=== PATIENT | female | born 1965 | race Hispanic/Latino ===

== ENCOUNTER 2018-02-23 10:49 | Emergency (ER) | payer SELFPAY ==
[2018-02-23] MEDS ORDERED: NA CHLORIDE 0.9% 1,000 ML ONE (11:41)
[2018-02-23] MEDS ORDERED: PROMETHAZINE 25 MG/ML VIAL ONE (11:41)
[2018-02-23 11:47] LABS: Absolute Lymphocytes (CBC) 1.7 K/uL (0.7-4.9); Absolute Monocytes 0.3 K/uL (0.1-1.3); Absolute Neutrophil 4.6 K/uL (1.8-8.0); Basophils % 0.5 % (0-1.3); Eosinophils % 1.5 % (0-4.4); Hematocrit 41.3 % (36.0-45.0); Lymphocytes % 25.5 % (15.3-44.8); MPV 7.6 fL (7.6-11.3); Monocytes % 4.1 % (3.3-12.3)
[2018-02-23 11:48] LABS: Protime INR 1.04
--- NOTE | 2018-02-23 11:48 | RAD REPORT ---
EXAM DESCRIPTION: CT - Head Brain Wo Cont - 02/23/2018 11:35 am CLINICAL HISTORY: Dizziness COMPARISON: None. TECHNIQUE: Computed axial tomography of the head was obtained. IV contrast was not requested. All CT scans are performed using dose optimization technique as appropriate and may include automated exposure control or mA/KV adjustment according to patient size. FINDINGS: An intracranial bleed is not seen . The ventricles are normal in caliber. No extra-axial fluid collection is noted. Fluid within the sinuses/ mastoids is not seen. IMPRESSION: No acute intracranial abnormality is seen. If patient's symptoms persist MRI of the bra in would be recommended.
[2018-02-23 11:59] LABS: Bilirubin Direct 0.1 mg/dL (0-0.2); Bilirubin Total 0.4 mg/dL (0.2-1.0); Magnesium 2.2 mg/dL (1.8-2.4); Protein, Total 8.6 g/dL (6.4-8.2)
[2018-02-23 12:59] LABS: Urine Bacteria <20 /HPF (<20); Urine Culture Reflex Order NOT NEEDED; Urine RBC <5 /HPF (NONE SEEN)
[2018-02-23 13:29] LABS: Urine Blood TRACE (NEG); Urine Glucose NEGATIVE (NEG); Urine Protein 2+ (NEG); Urine pH 5.5 (5.0-7.0)
--- NOTE | 2018-02-23 14:09 | RAD REPORT ---
EXAM DESCRIPTION: CT - Abdomen Pelvis W Contrast - 02/23/2018 1:43 pm CLINICAL HISTORY: Abdominal pain./vomiting/upper abdominal pain COMPARISON: None. TECHNIQUE: Computed axial tomography of the abdomen and pelvis was obtained. 100 cc Isovue-300 is ad ministered intravenously. Oral contrast was given. All CT scans are performed using dose optimization technique as appropriate and may include automated exposure control or mA/KV adjustment according to patient size. FINDINGS: The liver, spleen, pancreas, adrenals and left kidney appear unremarkable. The right kidney is absent The appendix is normal caliber. There is no evidence of diverticulitis Wall of the distal stomach appears mildly thickened. Small lipoma is present the right sartorius muscle. 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 Tiny umbilical hernia IMPRESSION: Mild thickening of the wall of the distal stomach may indicate gastritis
--- NOTE | 2018-02-23 14:15 | RAD REPORT ---
EXAM DESCRIPTION: [place] Single View02/23/2018 12:15 pm CLINICAL HISTORY: Fever COMPARISON: none FINDINGS: The lungs appear clear of acute infiltrate. The heart is normal size IMPRESSION: No acute abnormalities displayed
[2018-02-23] MEDS ORDERED: MAGNE/ALUM HYDROXD 30 ML UCUP ONE (14:29)
[2018-02-23] MEDS ORDERED: LIDOCAINE VISCOUS 2% SOLN 15 ML UDC ONE (14:30)
--- NOTE | 2018-02-23 14:51 | ER ---
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 Transition of care: patient was not received from another setting of care. Onset of symptoms was February 23, 2018. Risk Assessment: Do you want to hurt yourself or someone else? Patient reports no desire to harm self or others. Initial Sepsis Screen: Does the patient meet any 2 criteria? Yes Does the patient have a suspected source of infection? No. Patient's initial sepsis screen is negative. Care prior to arrival: None. 10:59 Method Of Arrival: Ambulatory 10:59 Acuity: HEDY 3 hj Triage Assessment: 11:03 General: Appears in no apparent distress. uncomfortable, Behavior is calm, cooperative, hj appropriate for age. Pain: Complains of pain in abdomen. GI: Reports upper abdominal pain, nausea, vomiting. 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 - Social history:: Smoking status: Patient/guardian denies using tobacco, Patient/guardian denies using alcohol. - Ebola Screening: : Patient negative for fever greater than or equal to 101.5 degrees Fahrenheit, and additional compatible Ebola Virus Disease symptoms Patient denies exposure to infectious person Patient denies travel to an Ebola-affected area in the 21 days before illness onset. Screenin:03 Abuse screen: Denies threats or abuse. Denies injuries from another. Nutritional hj screening: No deficits noted. Tuberculosis screening: No symptoms or risk factors identified. Fall Risk None identified. Assessment: 11:03 GI: Abdomen is non-distended. hj 11:15 General: Appears in no apparent distress. uncomfortable, Behavior is calm, cooperative, jl7 appropriate for age. Pain: Complains of pain in epigastric area Pain radiates to diaphragm Pain currently is 6 out of 10 on a pain scale. Quality of pain is described as squeezing, Pain began suddenly, Is continuous. Neuro: Level of Consciousness is awake, alert, obeys commands, Oriented to person, place, time, situation. Cardiovascular: Patient's skin is warm and dry. Respiratory: Airway is patent Respiratory effort is even, unlabored, Respiratory pattern is regular, symmetrical. GI: Abdomen is round non-distended, Pt is actively vomiting bile, Bowel sounds present X 4 quads. : No signs and/or symptoms were reported regarding the genitourinary system. EENT: No signs and/or symptoms were reported regarding the EENT system. Derm: Skin is pink, warm \T\ dry. Musculoskeletal: No signs and/or symptoms reported regarding the musculoskeletal system. 11:45 Reassessment: Pt actively vomiting, medication administered as ordered. jl7 12:46 Reassessment: Pt laying in bed with eyes closed, respirations even and unlabored, no jl7 signs of distress noted at this time. Daughter remains at bedside. 13:30 Reassessment: No changes from previously documented assessment. Patient and/or family jl7 updated on plan of care and expected duration. Pain level reassessed. Patient is alert, oriented x 3, equal unlabored respirations, skin warm/dry/pink. 14:28 Reassessment: Patient appears in no apparent distress at this time. No changes from jl7 previously documented assessment. Patient and/or family updated on plan of care and expected duration. Pain level reassessed. Patient is alert, oriented x 3, equal unlabored respirations, skin warm/dry/pink. pain rated 3/10 at this time. Vital Signs: 11:03 BP 152 / 66; Pulse 72; Resp 18; Temp 98.8(TE); Pulse Ox 98% on R/A; Weight 72.57 kg; hj Height 4 ft. 11 in. (149.86 cm); Pain 6/10; 12:24 BP 158 / 81; Pulse 70; Resp 16 S; Pulse Ox 98% on R/A; jl7 14:25 BP 128 / 72; Pulse 81; Resp 16 S; Pulse Ox 97% on R/A; jl7 15:19 BP 143 / 80; Pulse 77; Resp 16; Pulse Ox 96% on R/A; Pain 2/10; jl7 11:03 Body Mass Index 32.31 (72.57 kg, 149.86 cm) hj ED Course: 10:52 Patient arrived in ED. as 11:00 Triage completed. hj 11:03 Arm band placed on left wrist. hj 11:06 Patient has correct armband on for positive identification. Placed in gown. Bed in low hj position. Call light in reach. Adult w/ patient. 11:15 Initial lab(s) drawn, by tn, sent to lab. Urine collected: clean catch specimen, clear. jl7 Inserted saline lock: 22 gauge in left wrist, using aseptic technique. Blood collected. 11:16 Fredy Ann, DONATO is Primary Nurse. jl7 11:24 Lila Roach FNP-C is PHCP. snw 11:24 Murray Espinal MD is Attending Physician. snw 11:34 CT completed. Patient tolerated procedure well. Patient moved to CT via stretcher. Patient moved back from CT. 11:37 CT Head Brain wo Cont In Process Unspecified. EDMS 12:12 X-ray completed. Portable x-ray completed in exam room. Patient tolerated procedure ag1 well. 12:18 XRAY Chest (1 view) In Process Unspecified. EDMS 12:35 EKG done, by technical support assistant. reviewed by Lila WALKER. vh 13:37 CT completed. Patient tolerated procedure well. Patient moved to CT via stretcher. jg6 13:43 CT completed. Patient tolerated procedure well. Patient moved to CT via stretcher. sj Patient moved back from CT. 13:44 CT Abd/Pelvis - W/Contrast In Process Unspecified. EDMS 15:20 No provider procedures requiring assistance completed. IV discontinued, intact, jl7 bleeding controlled, No redness/swelling at site. Pressure dressing applied. Administered Medications: 11:45 Drug: NS 0.9% 1000 ml Route: IV; Rate: 125 ml/hr; Site: left wrist; jl7 11:55 Drug: Phenergan 12.5 mg Route: IVP; Site: left wrist; jl7 12:15 Follow up: Response: No adverse reaction; Nausea is decreased jl7 14:24 Drug: GI Cocktail without - (Maalox Suspension 30 ml, Lidocaine Liquid 2 % 15 jl7 ml) Route: PO; Outcome: 14:50 Discharge ordered by . inocente 15:20 Discharged to home ambulatory, with family. jl7 15:20 Condition: stable 15:20 Discharge instructions given to patient, family, Instructed on discharge instructions, follow up and referral plans. medication usage, Demonstrated understanding of instructions, follow-up care, medications, Prescriptions given X 2. 15:21 Patient left the ED. Signatures: Dispatcher [employer] EDMS Lila Roach, PATTERN RULER-C PATTERN RULER-Csnw Keiko Ha Amelia as Harrell, Venessa vh Gallaway, Ashley ag1 Anmol Singleton, RN RN Fredy Ann RN RN jl7 Swathi Lennon jg6 Corrections: (The following items were deleted from the chart) 11:06 11:03 Pulse 72bpm; Resp 18bpm; Pulse Ox 98% RA; Temp 98.8F Temporal; 72.57 kg; Height 4 hj ft. 11 in.; BMI: 32.3; Pain 6/10; hj 12:47 11:15 GI: Abdomen is round non-distended, Bowel sounds present X 4 quads. jl7 jl7
--- NOTE | 2018-02-23 14:51 | EDPHYS ---
Physician Documentation [facility] Name: Jia Joseph Age: 52 yrs Sex: Female : 1965 Arrival Date: 02/23/2018 Time: 10:52 Bed 26 Private MD: ED Physician Murray Espinal HPI: 02/23 14:57 This 52 yrs old Female presents to ER via Ambulatory with complaints of snw Vomiting, Dizziness. 14:57 The patient presents to the emergency department with nausea, vomiting, 12 times today, snw described as bilious. Onset: The symptoms/episode began/occurred suddenly, and became persistent. Possible causes: unknown. The symptoms are aggravated by nothing. Associated signs and symptoms: Pertinent positives: abdominal pain, nausea, vomiting, dizziness. Severity of symptoms: At their worst the symptoms were moderate in the emergency department the symptoms are unchanged. It is unknown whether or not the patient has had similar symptoms in the past. It is unknown whether or not the patient has recently seen a physician. epigastric pain and then nausea and dizziness. 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 - Social history:: Smoking status: Patient/guardian denies using tobacco, Patient/guardian denies using alcohol. - Ebola Screening: : Patient negative for fever greater than or equal to 101.5 degrees Fahrenheit, and additional compatible Ebola Virus Disease symptoms Patient denies exposure to infectious person Patient denies travel to an Ebola-affected area in the 21 days before illness onset. ROS: 15:00 Constitutional: Negative for fever, chills, and weight loss, Eyes: Negative for injury, snw pain, redness, and discharge, ENT: Negative for injury, pain, and discharge, Neck: Negative for injury, pain, and swelling, Cardiovascular: Negative for chest pain, palpitations, and edema, Respiratory: Negative for shortness of breath, cough, wheezing, and pleuritic chest pain, Back: Negative for injury and pain, : Negative for injury, bleeding, discharge, and swelling, MS/Extremity: Negative for injury and deformity, Skin: Negative for injury, rash, and discoloration. 15:00 Neuro: Negative for headache, weakness, numbness, tingling, and seizure, Psych: Negative for depression, anxiety, suicide ideation, homicidal ideation, and hallucinations. 15:00 Abdomen/GI: Positive for abdominal pain, nausea and vomiting. 15:00 Neuro: Positive for dizziness. Exam: 15:00 Constitutional: This is a well developed, well nourished patient who is awake, alert, snw and in no acute distress. Head/Face: Normocephalic, atraumatic. Eyes: Pupils equal round and reactive to light, extra-ocular motions intact. Lids and lashes normal. Conjunctiva and sclera are non-icteric and not injected. Cornea within normal limits. Periorbital areas with no swelling, redness, or edema. ENT: Nares patent. No nasal discharge, no septal abnormalities noted. Tympanic membranes are normal and external auditory canals are clear. Oropharynx with no redness, swelling, or masses, exudates, or evidence of obstruction, uvula midline. Mucous membranes moist. Neck: Trachea midline, no thyromegaly or masses palpated, and no cervical lymphadenopathy. Supple, full range of motion without nuchal rigidity, or vertebral point tenderness. No Meningismus. Chest/axilla: Normal chest wall appearance and motion. Nontender with no deformity. No lesions are appreciated. Cardiovascular: Regular rate and rhythm with a normal S1 and S2. No gallops, murmurs, or rubs. Normal PMI, no JVD. No pulse deficits. Respiratory: Lungs have equal breath sounds bilaterally, clear to auscultation and percussion. No rales, rhonchi or wheezes noted. No increased work of breathing, no retractions or nasal flaring. 15:00 Back: No spinal tenderness. No costovertebral tenderness. Full range of motion. Skin: Warm, dry with normal turgor. Normal color with no rashes, no lesions, and no evidence of cellulitis. MS/ Extremity: Pulses equal, no cyanosis. Neurovascular intact. Full, normal range of motion. Neuro: Awake and alert, GCS 15, oriented to person, place, time, and situation. Cranial nerves II-XII grossly intact. Motor strength 5/5 in all extremities. Sensory grossly intact. Cerebellar exam normal. Normal gait. Psych: Awake, alert, with orientation to person, place and time. Behavior, mood, and affect are within normal limits. 15:00 Abdomen/GI: Inspection: abdomen appears normal, Bowel sounds: diminished, Palpation: moderate abdominal tenderness, in the epigastric area. Vital Signs: 11:03 BP 152 / 66; Pulse 72; Resp 18; Temp 98.8(TE); Pulse Ox 98% on R/A; Weight 72.57 kg; hj Height 4 ft. 11 in. (149.86 cm); Pain 6/10; 12:24 BP 158 / 81; Pulse 70; Resp 16 S; Pulse Ox 98% on R/A; jl7 14:25 BP 128 / 72; Pulse 81; Resp 16 S; Pulse Ox 97% on R/A; jl7 15:19 BP 143 / 80; Pulse 77; Resp 16; Pulse Ox 96% on R/A; Pain 2/10; jl7 11:03 Body Mass Index 32.31 (72.57 kg, 149.86 cm) MDM: 11:24 Patient medically screened. snw 14:56 Data reviewed: vital signs, nurses notes. Data interpreted: Pulse oximetry: on room air snw is 97 %. Interpretation: normal. Counseling: I had a detailed discussion with the patient and/or guardian regarding: the historical points, exam findings, and any diagnostic results supporting the discharge/admit diagnosis, lab results, radiology results, the need for outpatient follow up, to return to the emergency department if symptoms worsen or persist or if there are any questions or concerns that arise at home. Special discussion: Based on the patient's Hx, exam, and Dx evaluation, there is no indication for emergent surgery or inpatient Tx. It is understood by the patient/guardian that if the Sx's persist or worsen they need to return immediately for re-evaluation. Based on the history and exam findings, there is no indication for further emergent testing or inpatient evaluation. I discussed with the patient/guardian the need to see the solids control technician for further evaluation of the symptoms. I discussed with the patient/guardian the need to see the primary care provider for further evaluation of the symptoms. 15:01 Response to treatment: the patient's symptoms have markedly improved after treatment. snw 02/23 11:23 Order name: Basic Metabolic Panel; Complete Time: 12:04 snw 02/23 11:23 Order name: CBC with Diff; Complete Time: 11:56 snw 02/23 11:23 Order name: LFT's; Complete Time: 12:04 snw 02/23 11:23 Order name: Magnesium; Complete Time: 12:04 snw 02/23 11:23 Order name: PT-INR; Complete Time: 11:56 snw 02/23 11:23 Order name: Urine Culture snw 02/23 11:23 Order name: XRAY Chest (1 view); Complete Time: 14:19 snw 02/23 11:23 Order name: Urine Microscopic Only; Complete Time: 13:01 snw 02/23 11:23 Order name: CT Head Brain wo Cont; Complete Time: 11:56 snw 02/23 12:11 Order name: CT Abd/Pelvis - W/Contrast; Complete Time: 14:15 snw 02/23 12:20 Order name: Add On-Lab w 02/23 12:24 Order name: Troponin I; Complete Time: 12:45 EDMS 02/23 12:27 Order name: Urine Dipstick--Ancillary (enter results); Complete Time: 13:33 eb 02/23 12:27 Order name: Urine --Ancillary (enter results); Complete Time: 13:33 eb 02/23 11:23 Order name: EKG; Complete Time: 11:24 snw 02/23 11:23 Order name: Cardiac monitoring; Complete Time: 12:39 snw 02/23 11:23 Order name: EKG - Nurse/Tech; Complete Time: 12:39 snw 02/23 11:23 Order name: IV Saline Lock; Complete Time: 12:08 snw 02/23 11:23 Order name: Labs collected and sent; Complete Time: 12:08 snw 02/23 11:23 Order name: O2 Per Protocol; Complete Time: 12:08 snw 02/23 11:23 Order name: O2 Sat Monitoring; Complete Time: 12:08 snw 02/23 11:23 Order name: Urine Dipstick-Ancillary (obtain specimen); Complete Time: 12:08 snw Administered Medications: 11:45 Drug: NS 0.9% 1000 ml Route: IV; Rate: 125 ml/hr; Site: left wrist; jl7 11:55 Drug: Phenergan 12.5 mg Route: IVP; Site: left wrist; jl7 12:15 Follow up: Response: No adverse reaction; Nausea is decreased jl7 14:24 Drug: GI Cocktail without - (Maalox Suspension 30 ml, Lidocaine Liquid 2 % 15 jl7 ml) Route: PO; Disposition: 02/24 07:34 Co-signature as Attending Physician, Murray Espinal MD. rn Disposition: 02/23/18 14:50 Discharged to Home. Impression: Gastritis, unspecified, without bleeding. - Condition is Stable. - Discharge Instructions: Gastritis, Adult, Nausea and Vomiting, Adult. - Prescriptions for Pepcid 20 mg Oral Tablet - take 1 tablet by ORAL route once daily for 10 days; 10 tablet. promethazine 25 mg Oral Tablet - take 1 tablet by ORAL route every 6 hours As needed; 20 tablet. - Medication Reconciliation Form, Thank You Letter, Antibiotic Education, Prescription Opioid Use form. - Follow up: Emergency Department; When: As needed; Reason: Worsening of condition. Follow up: Private Physician; When: 2 - 3 days; Reason: Recheck today's complaints, Continuance of care, Re-evaluation by your physician. Signatures: Dispatcher [employer] EDTX Lila Roach, VINCENT-C STEAM TANK OPERATOR-Csnw Murray Espinal MD MD rn Joaquin, Henry, RN RN hj Leal, Jahala, RN RN jl7 Corrections: (The following items were deleted from the chart) 02/23 15:21 14:50 02/23/2018 14:50 Discharged to Home. Impression: Gastritis, unspecified, without jl7 bleeding. Condition is Stable. Forms are Medication Reconciliation Form, Thank You Letter, Antibiotic Education, Prescription Opioid Use. Follow up: Emergency Department; When: As needed; Reason: Worsening of condition. Follow up: Private Physician; When: 2 - 3 days; Reason: Recheck today's complaints, Continuance of care, Re-evaluation by your physician. snw
--- NOTE | 2018-02-23 22:57 | EKG ---
Test Date: 2018-02-23 Test Time: 12:13:13 Quality Systems Manager: [place] MEASUREMENT RESULTS: Intervals: Rate: 68 MA: 130 QRSD: 108 QT: 440 QTc: 467 [place]: P: 50 MA: 130 QRS: -44 T: -17 INTERPRETIVE STATEMENTS: Normal sinus rhythm Left axis deviation Incomplete right bundle branch block Voltage criteria for left ventricular hypertrophy Cannot rule out Anteroseptal infarct, age undetermined Abnormal ECG No previous ECG available for comparison Electronically Signed On 02-23-18 22:56:54 DRIVER'S LICENSE REVIEWING OFFICER by Antonio Landeros
== END 2018-02-23 15:21 | disposition home or self-care (01) ==
LOC: ER 10:49
DX: K29.70 Gastritis, unspecified, without bleeding (principal); I45.10 Unspecified right bundle-branch block; R94.31 Abnormal electrocardiogram [ECG] [EKG]; I10 Essential (primary) hypertension; Z79.899 Other long term (current) drug therapy; Z85.3 Personal history of malignant neoplasm of breast
CPT/HCPCS: 36415; 70450; 71045; 74177; 80048; 80076; 81003; 81015; 81025; 83735; 84484; 85025; 85610; 87086; 87088; 93005; 96374; 99284; J2550; J7030; Q9967